=== PATIENT | female | born 1995 | race Caucasian/White ===

== ENCOUNTER 2019-09-07 08:52 | Outpatient (CLI) | payer OTHER ==
[~2019-09-07] VITALS: Ht 167.7 cm; Wt 98.0 kg
--- NOTE | 2019-09-07 08:15 | NUR ---
DEEPTI [place] presented to unit via WHEELCHAIR, accompanied by DIDIER, RN FROM [facility], with c/o BLURRY VISION, PERIOD OFF SLURRED SPEECH, DIFFICULTY READING, THIHNKING CLEARLY, AND/OR COMPREHENDING, FINGERS TINGLING, MIGRAINE. DEEPTI NY to bed immediately, EFHM and TOCO applied, VS taken. DEEPTI NY oriented to bed controls, call light. call light at bedside. this rn remains at bedside for evaluation. Dr Umana appears to bedside for evaluation ( was on unit when pt presented) at 0821.
[2019-09-07 08:20] VITALS: BP 131/93
--- NOTE | 2019-09-07 08:21 | NUR ---
DR KENDALL AT BEDSIDE FOR EVALUATION. PUPILS RESPONSE +, TRACKING FINGER, EQUAL SMILE/FACIAL EXPRESSIONS. PT STATES SHE USUALLY EATS BREAKFAST BEFORE GOING TO WORK, SHE DID NOT EAT THIS AM. STARTED FEELING ODD ON THE DRIVE TO WORK THIS AM, STATES SHE COULD ONLY READ HALF A WORD. CO BLURRY VISION, DIFFICULTY READING, UNABLE TO UNDERSTAND/COMPREHEND WHAT SHE WAS ABLE TO READ. NOT THINKING CLEARLY. PT STATES SHE JUST FEELS WEIRD LIKE SOMETHING IS OFF. DIDIER RN FROM [facility] BROUGHT THE PT UP BY WHEELCHAIR AND STATES THAT THE PT HAD SLURRED SPEECH WELL. PT CO MIGRAINE AND SORE THROAT. DR KENDALL BELIEVES THIS MAY BE THE RESULT OF LOW BLOOD SUGAR. LABS ORDERED, BREAKFAST ORDERED FOR PT WELL. FHT REACTIVE.
[2019-09-07 09:00] VITALS: BP 111/77
[2019-09-07 09:18] LABS: BILIRUBIN,URINE NEGATIVE (NEGATIVE); CLARITY,URINE CLEAR; COLOR,URINE YELLOW; GLUCOSE, URINE (UA) NEGATIVE (NEGATIVE); KETONES,URINE NEGATIVE (NEGATIVE); LEUKOCYTE ESTERASE ,URINE NEGATIVE (NEGATIVE); NITRITE,URINE NEGATIVE (NEGATIVE); PROTEIN,URINE NEGATIVE (NEGATIVE)
[2019-09-07 09:24] LABS: BASOPHILS % (AUTO) 0 % (0-10); EOSINOPHILS % (AUTO) 0 % (0-10); HEMATOCRIT 33 % (35-52); HEMOGLOBIN 10.9 G/DL (11.5-16.0); LYMPHOCYTES # (AUTO) 1.2 X 10^3 (1.0-4.0); LYMPHOCYTES % (AUTO) 10 % (12-44); MEAN CORPUSCULAR HEMOGLOBIN 28 PG (25-34); MEAN CORPUSCULAR HGB CONC 33 G/DL (32-36); MEAN CORPUSCULAR VOLUME 85 FL (80-99); MEAN PLATELET VOLUME 10.4 FL (7.4-10.4); MONOCYTES # (AUTO) 0.9 X 10^3 (0.0-1.0); MONOCYTES % (AUTO) 8 % (0-12); NEUTROPHILS # (AUTO) 9.7 X 10^3 (1.8-7.8); NEUTROPHILS % (AUTO) 82 % (42-75); PLATELET COUNT 177 10^3/uL (130-400); RED CELL DISTRIBUTION WIDTH 13.1 % (10.0-14.5); WHITE BLOOD COUNT 11.9 10^3/uL (4.3-11.0)
[2019-09-07 09:25] VITALS: BP 125/82
[2019-09-07 09:25] LABS: SMEAR SCAN COMMENT NO
[2019-09-07 09:35] VITALS: BP 125/82
[2019-09-07 09:35] LABS: BACTERIA,URINE FEW /HPF
[2019-09-07 09:40] LABS: ALANINE AMINOTRANSFERASE 19 U/L (0-55); ALBUMIN 3.4 GM/DL (3.2-4.5); ALKALINE PHOSPHATASE 112 U/L (40-136); BILIRUBIN,TOTAL 0.6 MG/DL (0.1-1.0); BUN/CREATININE RATIO 10; CALCIUM 8.5 MG/DL (8.5-10.1); CARBON DIOXIDE 21 MMOL/L (21-32); CHLORIDE 105 MMOL/L (98-107); CREATININE SERUM 0.67 MG/DL (0.60-1.30); GFR ESTIMATED > 60; GLUCOSE 77 MG/DL (70-105); POTASSIUM 3.8 MMOL/L (3.6-5.0); SODIUM 137 MMOL/L (135-145); TOTAL PROTEIN 6.5 GM/DL (6.4-8.2)
[2019-09-07 09:52] LABS: BAND NEUTROPHILS 6 %; LYMPHOCYTES % (MANUAL) 7 %; MONOCYTES % (MANUAL) 8 %; NEUTROPHILS % (MANUAL) 79 %; RBC MORPH NORMAL; TOXIC GRANULATION/VACUOLAZATIO 1+
--- NOTE | 2019-09-07 10:00 | NUR ---
DR KENDALL CALLED WITH UPDATED PT REPORT AT THIS TIME. TOCO SHOWS IRREGULAR UC FROM 2-10+ MIN APART. PT STATES SHE FEELS OCCASIONAL LIGHT CRAMPING. FHT REACTIVE WITH ACCELS PRESENT, NO DECELS. PT STATES SHE FEELS BETTER. STILL HAS HEADACHE PRESENT BUT IS GETTING BETTER SINCE SHE HAS EATEN. RIGHT EYE STILL SLIGHTLY BLURRY BUT A LOT BETTER AND ABLE TO READ, UNDERSTAND, SPEAK CLEARLY, PUPILS REACTIVE AND EQUAL, ABLE TO TRACK WELL. SLIGHT SWELLLING IN ANKLES, RIGHT DTR NORMAL, LEFT DTR SLIGHTLY DIMINISHED. SVE BY THIS RN SINCE IRREGULAR UC, DIMPLE/0.5 CM, 0% EFFACEMENT. LAB RESULTS READ TO DR KENDALL. DR KENDALL STATES PT MAY HAVE TYLENOL IF SHE WANTS FOR HEADACHE AND MY BE DC. PT UPDATED ON PLAN, INSTRUCTED TO GET DRESSED AND RN WILL COME BACK WITH DC INSTRUCTIONS. PT OFFERED TYLENOL AND DENIED TYLENOL.
--- NOTE | 2019-09-08 08:00 | Physician Query-Final Dx ---
MIS BURNHAM 09/08/19 0800: Clinic Account Progress/Dx Physician Query: Please give diagnosis Please include # weeks gestation Date of Service Sep 07, 2019 at 08:52 LOUISE KENDALL DO 09/08/191: Clinic Account Progress/Dx DIAGNOSIS: Diagnosis 38 week IUP Confusion, and transient weakness MIS BURNHAM Sep 08, 2019 08:00 LOUISE ZARCO DO Sep 08, 2019 20:51 POS
[2019-09-22] MEDS ORDERED: ACHD5005 PO (10:16)
[2019-09-22] MEDS ORDERED: IBUP-844 PO (10:16)
[2019-09-22] MEDS ORDERED: DOCU100C37 PO (10:16)
[2019-09-22] MEDS ORDERED: Benzocaine/Menthol TP (10:16)
[2019-09-22] MEDS ORDERED: OSLT75C PO (16:16)
== END 2019-09-07 10:10 | disposition home or self-care (01) ==
LOC: LDRP 08:52 → WSo 08:52
PROVIDERS: ATTEND Obstetrics & Gynecology
DX: O99.343 Other mental disorders complicating pregnancy, third trimester (principal); O26.893 Other specified pregnancy related conditions, third trimester; R41.0 Disorientation, unspecified; R53.1 Weakness; Z3A.38 38 weeks gestation of pregnancy
CPT/HCPCS: 36415; 80053; 81000; 82570; 84156; 85007; 85027; 99213

== ENCOUNTER 2019-09-18 08:50 | Outpatient (CLI) | payer OTHER ==
[~2019-09-18] VITALS: Ht 167.7 cm; Wt 97.9 kg
--- NOTE | 2019-09-18 08:50 | NUR ---
DEEPTI NY presented to unit via ambulatory from ED, accompanied by self, with c/o LEAKING FLUID. DEEPTI NY weighed, gowned, voided, and to bed. EFHM and TOCO applied, VS taken. DEEPTI [place] oriented to bed controls, call light, TV, heat, and A/C controls.
[2019-09-18 09:27] VITALS: BP 116/81
--- NOTE | 2019-09-18 10:36 | History & Physical-OB ---
OB - Chief Complaint & HPI Date/Time Date of Admission: Date of Admission: Date seen by a Provider: Sep 18, 2019 Time Seen by a Provider: 10:25 Chief Complaint/History Hx : 1 Hx Para: 0 Expected Date of Delivery: Sep 22, 2019 Gestational Age in Weeks: 39 Gestational Age in Days: 3 Other reason for admission: Patient presents with contractions and concerns of SROM. Reports no further leaking since this morning. Amnioswab per RN was negative. Admission Nurse Assessment Rev: Yes Allergies and Home Medications Allergies Coded Allergies: No Known Drug Allergies (Unverified , 09/07/19) Home Medications No Active Prescriptions or Reported Meds Patient Home Medication List Home Medication List Reviewed: Yes OB - History Hx of Present Care: Yes Ultrasounds: Normal mid trimester US Obstetrical Complications: None Medical Complications: None Obstetrical History Hx : 1 Hx Para: 0 Hx Total # of Abortions (Spona: 0 Patient Past Medical History n/a Social History/Family History Recent Infectious Disease Expo: No Alcohol Use: Denies Use Recreational Drug Use: No 2nd Hand Smoke Exposure: No Immunizations Date of Influenza Vaccine: Jul 18, 2019 OB - Admission Exam Physical Exam Vitals: Vital Signs 09/18/19 09:27 Temp 36.3 Pulse 89 Resp 16 O2 Delivery Room Air HEENT: NCAT Heart: Rhythm Normal Lungs: Clear Abdomen: Gravid Extremities: Normal Reflexes: Normal Cervical Dilatation: 1cm Effacement: 50% Station: -2 Membranes: Intact Heart Rate: 130's Accelerations: Accelerations Present Decelerations: No Decelerations Contractions on Admission: 6-10 Minutes Apart Intensity: Mild OB - Assessment/Plan/Diagnosis Assessment Admission Dx 23 yo @ 39 weeks Irregular contractions Leakage of fluid (likely BLU of ) Admission Status: Observation Plan Other Plan Patient given labor precautions and discharge order was given. LOUISE KENDALL DO Sep 18, 2019 10:36 POS
[2019-09-18] MEDS ORDERED: PREN1TAB19 PO (10:40)
== END 2019-09-18 10:45 | disposition home or self-care (01) ==
LOC: LDRP 08:50 → WSo 08:50
PROVIDERS: ATTEND Obstetrics & Gynecology
DX: O62.0 Primary inadequate contractions (principal); O42.913 Preterm premature rupture of membranes, unspecified as to length of time between rupture and onset of labor, third trimester; Z3A.39 39 weeks gestation of pregnancy
CPT/HCPCS: 99214

== ENCOUNTER → 2021-04-16 | Outpatient (CLI) | payer OTHER ==
[~2021-04-16] MED LIST: ACHD5005 PO; Benzocaine/Menthol TP; DOCU100C37 PO; IBUP-844 PO; OSLT75C PO; PREN1TAB19 PO
--- NOTE | 2021-04-16 15:16 | Diagnostic Imaging Report ---
INDICATION: survey. TECHNIQUE: Multiple real-time grayscale images were obtained over the gravid uterus. COMPARISON: None FINDINGS: There is a single live fetus in a breech presentation. heart rate was recorded at 152 bpm. Placenta is posterior. No previa is identified. Amniotic fluid volume appears normal. Cervical length is 5.6 cm. survey demonstrates kidneys, bladder and stomach to be unremarkable. brain is unremarkable. There is a four-chamber heart. There is a three-vessel cord with normal insertion. spine is unremarkable. Biometrical measurements are as follows: Biparietal 4.45 cm, age 19 weeks 4 days. Head circumference 16.47 cm, age 19 weeks 2 days. Abdominal circumference 15.32 cm, age 20 weeks 4 days. Femur length 3.03 cm, age 19 weeks 3 days. Sonographic estimate age: 19 weeks 5 days. Sonographic estimated date of delivery: 09/05/2021. Estimated Weight: 319 gm (+/- 47 gm). LMP percentile: 73%. heart rate: 152 beats per minute. number: 1 of 1. IMPRESSION: Single live IUP of 19 weeks 5 days gestational age. Estimated date of confinement sonographically is 09/05/2021. Dictated by: Dictated on workstation # [id number]
== END ==
LOC: RAD 10:00
PROVIDERS: ATTEND Nurse Practitioner Women's Health
DX: Z34.02 Encounter for supervision of normal first pregnancy, second trimester (principal); Z3A.19 19 weeks gestation of pregnancy
CPT/HCPCS: 76805

== ENCOUNTER 2021-09-04 06:30 | Inpatient (IN) | payer OTHER ==
[2021-09-04] VITALS (52 sets, daily range): BP systolic 74–128; BP diastolic 37–80
[~2021-09-04] VITALS: Ht 167.7 cm; Wt 94.9 kg
--- OUTSIDE RECORDS SUMMARY | 2021-09-04 06:48 | XMS REPORT | Clinical Summary ---
Author Author [facility] Address Unknown Phone Unavailable Care Team Providers Care Ship Design Teacher Name Role Phone PCP Unavailable Allergies No known active allergies Medications Not on file Active Problems Not on file Immunizations Name Administration Dates Next Due DTaP 04/12/2000, 03/06/1996, , 03/22/1995 HPV, quadrivalent 04/16/2011, 03/13/2010, 06/2009 (Gardasil) Hepatitis A, Ped/adol, 2 03/17/2012, 04/16/2011 dose Hepatitis B, NOS 05/17/1995, 01/18/1995, HiB (PRP-T) 03/06/1996, 05/17/1995, , 01/18/1995 IPV 04/12/2000 MMR 04/12/2000, 03/06/1996 Meningococcal 04/16/2011 Polysaccharide valent-4 Diphtheria Toxoid Conjucate (Menactra) Polio,NOS ([employer] 05/17/1995, 03/22/1995, registry) Tdap 04/11/2009 Varicella (Varivax) 05/06/2007, 02/03/1999 Social History Date Tobacco Use Types Packs/Day Years Used Never Smoker Sex Assigned at Date Recorded Not on file Last Filed Vital Signs Reading Time Taken Comments Vital Sign 100/62 03/17/2012 9:17 AM CDT Blood Pressure - - Pulse - - Temperature - - Respiratory Rate - - Oxygen Saturation - - Inhaled Oxygen Concentration 75.8 kg (167 lb) 03/17/2012 9:17 AM CDT Weight 167.6 cm (5' 6") 03/17/2012 9:17 AM CDT Height 26.95 03/17/2012 9:17 AM CDT Body Mass Index Plan of Treatment Health Maintenance Due Date Last Done Comments COVID-19 Vaccine (1) 1999 Hepatitis C Screening 2012 Cervical Cancer Screening 2015 DTaP,Tdap,and Td Vaccines 04/11/2019 04/11/2009, (6 - Td or Tdap) 04/12/2000, 03/06/1996, Additional history exists Influenza Vaccine (#1) 2021 Pneumo-Vaccine: 65+Yrs (1 2059 of 1 - PPSV23) HIB Vaccines Completed 03/06/1996, 05/17/1995, 03/22/1995, Additional history exists IPV Vaccines Completed 04/12/2000, 05/17/1995, 03/22/1995, Additional history exists MMR Vaccines-Adult Completed 04/12/2000, 03/06/1996 Varicella Vaccines Completed 05/06/2007, 02/03/1999 HPV Vaccines Completed 04/16/2011, 03/13/2010, 04/11/2009 Meningococcal Vaccine Completed 04/16/2011 Pneumo-Vaccine: Peds (0-5 Aged Out No longer el igible based on patient's age to Yrs) & At-Risk Patients complete this topic (6-64 Yrs) Rotavirus Vaccines Aged Out No longer eligible based on patient's age to complete this topic Results Not on filefrom Last 3 Months
[2021-09-04] MEDS ORDERED: D5 LR IV SOLUTION 1,000 ML IV ONE (07:49)
[2021-09-04] MEDS ORDERED: MINERAL OIL CONCENTRATE 99.9% 15 ML UDC TOP PRN (08:00)
[2021-09-04 08:07] LABS: BASOPHILS % (AUTO) 0 % (0-10); EOSINOPHILS # (AUTO) 0.2 10^3/uL (0.0-0.3); EOSINOPHILS % (AUTO) 2 % (0-10); HEMATOCRIT 33 % (35-52); HEMOGLOBIN 11.2 g/dL (11.5-16.0); LYMPHOCYTES % (AUTO) 17 % (12-44); MEAN CORPUSCULAR HEMOGLOBIN 29 pg (25-34); MEAN CORPUSCULAR HGB CONC 34 g/dL (32-36); MEAN CORPUSCULAR VOLUME 86 fL (80-99); MEAN PLATELET VOLUME 11.1 fL (9.0-12.2); MONOCYTES # (AUTO) 0.9 10^3/uL (0.0-1.0); MONOCYTES % (AUTO) 8 % (0-12); NEUTROPHILS # (AUTO) 8.6 10^3/uL (1.8-7.8); NEUTROPHILS % (AUTO) 73 % (42-75); PLATELET COUNT 182 10^3/uL (130-400); WHITE BLOOD COUNT 11.8 10^3/uL (4.3-11.0)
[2021-09-04] MEDS ORDERED: fentaNYL 2 mcg/ml BUPIVA 0.125 100 ML ONE (08:44)
[2021-09-04] MEDS ORDERED: fentaNYL INJ 100 MCG/2 ML AMP ONE (09:25)
[2021-09-04] MEDS ORDERED: BUPIVACAINE 0.25% 30 ML (SENSORCAINE) VIAL ONE (09:25)
[2021-09-04] MEDS ORDERED: OXYTOCIN PRE-MIX DRIP 500 ML IV ONE (10:12)
[2021-09-04] MEDS ORDERED: ONDANSETRON 4 MG/2 ML (SDV) Z0FRAN IV PRN (10:15)
[2021-09-04] MEDS ORDERED: EPIDURAL (fentaNYL 2 MCG/ML BUPIVA 0.125%)100 ML BAG EPI PRN (10:15)
[2021-09-04] MEDS ORDERED: diphenhydrAMINE 50 MG/ML INJ (BENADRYL) IV PRN (10:15)
[2021-09-04] MEDS ORDERED: NALOXONE 0.4 MG/ML 1 ML (NARCAN) VIAL IV PRN ×2 (10:15→18:00)
[2021-09-04] MEDS ORDERED: LACTATED RINGERS 1,000 ML IV SCH (10:15)
[2021-09-04] MEDS ORDERED: OXYTOCIN PRE-MIX DRIP 500 ML IV SCH ×2 (10:15→18:00)
[2021-09-04] MEDS: D5 LR IV SOLUTION 1,000 ML IV SCH ×2 (10:18→14:33)
--- NOTE | 2021-09-04 12:36 | History & Physical-OB ---
OB - Chief Complaint & HPI Date/Time Date of Admission: Date of Admission: Sep 04, 2021 at 6:40 am Date seen by a Provider: Sep 04, 2021 Time Seen by a Provider: 08:10 Chief Complaint/History OB-Reason for Admission/Chief: Induction of Labor Hx : 2 Hx Para: 1 Expected Date of Delivery: Sep 07, 2021 Gestational Age in Weeks: 39 Gestational Age in Days: 4 Admission Nurse Assessment Rev: Yes Allergies and Home Medications Allergies Coded Allergies: No Known Drug Allergies (Unverified , 09/07/19) Patient Home Medication List Home Medication List Reviewed: Yes Docusate Sodium (Docusate Sodium) 100 Mg Capsule, 100 MG PO BID Prescribed by: LOUISE KENDALL on 09/22/19 1016 Hydrocodone Bit/Acetaminophen (Lortab 5 Mg Tablet) 1 Tab Tab, 1 TAB PO Q4H PRN for PAIN-MODERATE (5-7) Prescribed by: LOUISE KENDALL on 09/22/19 1016 Ibuprofen (Ibu) 600 Mg Tablet, 600 MG PO Q6H Prescribed by: LOUISE KENDALL on 09/22/19 1016 Oseltamivir Phosphate (Tamiflu) 75 Mg Cap, 75 MG PO BID Prescribed by: SONAL FLORENTINO on 09/22/19 1616 Vit/Iron Fumarate/FA ( Vitamins Tablet) 1 Each Tablet, 1 EACH PO DAILY, (Reported) Entered as Reported by: INES LI on 09/18/19 1040 [Benzocaine/Menthol] 1 AEROSOL, 0 ML TP UD PRN for PAIN- SEE INSTRUCTIONS Prescribed by: LOUISE KENDALL on 09/22/19 1016 OB - History Hx of Present Care: Yes Ultrasounds: Normal mid trimester US Obstetrical Complications: None Medical Complications: None Delivery History Adverse Rxn to Tranfusion: No Patient Past Medical History n/a Social History/Family History 2nd Hand Smoke Exposure: No Immunizations Hepatitis A: Yes Hepatitis B: Yes Date of Influenza Vaccine: Jul 18, 2019 OB - Admission Exam Physical Exam Vitals: Vital Signs 09/04/21 11:49 Temp 36.0 Pulse 78 Resp 20 B/P (MAP) 105/62 (76) Pulse Ox 100 O2 Delivery Room Air HEENT: NCAT Heart: Rhythm Normal Lungs: Clear Abdomen: Gravid Extremities: Normal Reflexes: Normal Cervical Dilatation: 3cm Effacement: 75% Station: -1 Membranes: Intact Heart Rate: 130's Accelerations: Accelerations Present Decelerations: No Decelerations Short Term Variability: Present Telescope Operator Variability: Average (6-25) Contractions on Admission: 6-10 Minutes Apart Intensity: Mild Horner Scoring Tool (Modified) Dilation (cm): 3-4cm (2) Effacement (%): 51-79% (2) Descent/Station: -1,0 (2) Cervix Consistency: Soft (2) Cervix Position: Anterior (2) Add 1 point for: Each previous vaginal delivery (1) Horner Score: 11 Labs Laboratory Tests Test 09/04/21 07:40 Range/Units White Blood Count 11.8 H 4.3-11.0 10^3/uL Red Blood Count 3.89 3.80-5.11 10^6/uL Hemoglobin 11.2 L 11.5-16.0 g/dL Hematocrit 33 L 35-52 % Mean Corpuscular Volume 86 80-99 fL Mean Corpuscular Hemoglobin 29 25-34 pg Mean Corpuscular Hemoglobin Concent 34 32-36 g/dL Red Cell Distribution Width 13.7 10.0-14.5 % Platelet Count 182 130-400 10^3/uL Mean Platelet Volume 11.1 9.0-12.2 fL Immature Granulocyte % (Auto) 1 % Neutrophils (%) (Auto) 73 42-75 % Lymphocytes (%) (Auto) 17 12-44 % Monocytes (%) (Auto) 8 0-12 % Eosinophils (%) (Auto) 2 0-10 % Basophils (%) (Auto) 0 0-10 % Neutrophils # (Auto) 8.6 H 1.8-7.8 10^3/uL Lymphocytes # (Auto) 2.0 1.0-4.0 10^3/uL Monocytes # (Auto) 0.9 0.0-1.0 10^3/uL Eosinophils # (Auto) 0.2 0.0-0.3 10^3/uL Basophils # (Auto) 0.0 0.0-0.1 10^3/uL Immature Granulocyte # (Auto) 0.1 0.0-0.1 10^3/uL OB - Assessment/Plan/Diagnosis Assessment Assessment: induction of labor Admission Dx 25 yo @ 39 weeks Elective IOL GBS neg Admission Status: Inpatient Order (span 2 midnights) Reason for Inpatient Admission: IOL at 39 weeks Plan Plan: Induction Induction Method: LOUISE WOOD DO Sep 04, 2021 12:36 pm
[2021-09-04] MEDS ORDERED: CATHETER FLUSH 10 ML SYR IV SCH ×2 (14:00→22:00)
--- NOTE | 2021-09-04 17:55 | Discharge Inst-Women's Service ---
Discharge Inst-Women's Serv Depart Medication/Instructions New, Converted or Re-Newed RX: Transmitted to Pharmacy Final Diagnosis PPD 2 NVD Problems Reviewed?: Yes Consults/Follow Up Additional Follow Up: Yes Orders/Referrals Dr. Kendall in 6 weeks Activity Activity: Activity as Tolerated Driving Instructions: No Driving for 1 Week NO SMOKING: NO SMOKING Nothing Inside Vagina: No Douching, No [place], No Tampons Diet Discharge Diet: No Restrictions Symptoms to Report to : Bleeding Excessive, Pain Increased, Fever Over 101 Degrees F, Vaginal Bleeding Increase, Questions/Concerns For Any Problems or Questions: Contact Your Physician LOUISE KENDALL DO Sep 04, 2021 17:55
--- NOTE | 2021-09-04 17:55 | OB Labor & Delivery Record ---
L&D History Date of Service Date of Service: Sep 04, 2021 History Expected Date of Delivery: Sep 07, 2021 Gestational Age in Weeks: 39 Hx : 2 Hx Para: 1 Complications Events: Routine care Operative Indications (Cesarea: N/A-Vaginal Delivery Intrapartal Events: None L&D Stage1 Stage One Onset of Labor - Date: Sep 04, 2021 Monitors and Tracing Monitor Mode: External Heart Rate: 135 Station: 0 Vital Signs VS - Last 72 Hours, by Label 09/04/21 09/04/21 09/04/21 09/04/21 07:25 07:55 08:25 08:55 Temp 36.6 Pulse 87 90 83 75 Resp 20 20 20 20 B/P (MAP) 118/70 (86) 114/80 (91) 105/57 (73) 108/62 (77) O2 Delivery Room Air Room Air Room Air Room Air 09/04/21 09/04/21 09/04/21 09/04/21 09:40 09:43 09:47 09:50 Pulse 93 76 101 101 Resp 20 20 20 20 B/P (MAP) 128/74 (92) 120/68 (85) 122/70 (87) 117/70 (86) Pulse Ox 100 100 99 99 O2 Delivery Room Air Room Air Room Air Room Air 09/04/21 09/04/21 09/04/21 09/04/21 09:54 09:56 09:58 10:02 Temp 36.0 Pulse 90 56 60 74 Resp 20 20 20 20 B/P (MAP) 90/45 (60) 74/37 (49) 106/58 (74) 113/66 (82) Pulse Ox 99 99 97 98 O2 Delivery Room Air Room Air Room Air Room Air 09/04/21 09/04/21 09/04/21 09/04/21 10:04 10:08 10:10 10:14 Pulse 74 87 84 84 Resp 20 20 20 20 B/P (MAP) 113/63 (80) 112/65 (81) 101/65 (77) 108/63 (78) Pulse Ox 98 99 99 99 O2 Delivery Room Air Room Air Room Air Room Air 09/04/21 09/04/21 09/04/21 09/04/21 10:17 10:32 10:48 11:03 Pulse 83 77 83 85 Resp 20 20 20 20 B/P (MAP) 106/61 (76) 108/63 (78) 105/61 (76) 93/58 (70) Pulse Ox 99 100 100 100 O2 Delivery Room Air Room Air Room Air Room Air 09/04/21 09/04/21 09/04/21 09/04/21 11:18 11:33 11:49 12:04 Temp 36.0 Pulse 88 86 78 80 Resp 20 20 20 20 B/P (MAP) 95/61 (72) 100/64 (76) 105/62 (76) 113/71 (85) Pulse Ox 100 100 100 100 O2 Delivery Room Air Room Air Room Air Room Air 09/04/21 09/04/21 09/04/21 09/04/21 12:18 12:33 12:50 13:05 Pulse 79 81 82 85 Resp 20 20 20 20 B/P (MAP) 112/69 (83) 110/59 (76) 106/68 (81) 96/51 (66) Pulse Ox 100 100 100 100 O2 Delivery Room Air Room Air Room Air Room Air 09/04/21 09/04/21 09/04/21 09/04/21 13:18 13:33 13:50 14:04 Pulse 81 90 82 79 Resp 20 20 20 20 B/P (MAP) 100/55 (70) 97/55 (69) 100/59 (73) 108/63 (78) Pulse Ox 100 100 100 100 O2 Delivery Room Air Room Air Room Air Room Air 09/04/21 09/04/21 09/04/21 09/04/21 14:18 14:33 14:49 15:03 Temp 36.6 Pulse 82 99 76 85 Resp 20 20 20 20 B/P (MAP) 96/53 (67) 118/79 (92) 108/67 (81) 112/69 (83) Pulse Ox 99 99 100 100 O2 Delivery Room Air Room Air Room Air Room Air 09/04/21 09/04/21 09/04/21 09/04/21 15:18 15:33 15:48 16:03 Temp 36.9 Pulse 84 91 96 99 Resp 20 20 20 20 B/P (MAP) 111/72 (85) 115/73 (87) 110/67 (81) 104/63 (77) Pulse Ox 100 100 100 100 O2 Delivery Room Air Room Air Room Air Room Air 09/04/21 09/04/21 09/04/21 16:18 16:33 16:48 Pulse 91 79 87 Resp 20 20 20 B/P (MAP) 111/67 (82) 96/70 (79) 103/67 (79) Pulse Ox 100 100 100 O2 Delivery Room Air Room Air Room Air Rupture of Membranes Spontaneous Ruture of Membrane: No Amniotic Membrane Rupture Time: 0804 Amniotic Membrane Fluid Desc.: Clear Vaginal Bleeding Description: Normal Show Induction/Anesthesia Epidural Cath Placement - Time: 939 Progress/Notes Patient had AROM performed, followed by pitocin augmentation. She progressed with epidural to complete and +2 station. L&D Stage2 Stage Two Stage II Date: Sep 04, 2021 Monitors and Tracing Monitor Mode: External Heart Rate: 135 Position: Right Occiput Anterior Presentation: Vertex Cord Descript/Complications Cord Vessel Description: 3 Vessels Complications nuchal cord reduced x 1 Delivery Type Delivery Method: Spontaneous Vaginal Anterior Shoulder: Right Episiotomy/Perineal Laceration Laceraction(s)/Extensions: Yes Episiotomy Description: Perineal Extension/lac, 1st degree Degree (describe repair) 1st degree perineal laceration repaired using 3-0 rapide vicryl in usual fashion. Condition of Infant Delivery 1 minute Comment: 9 5 minute Comment: 9 Notes Live female infant weight 8lbs 10 oz Condition of Condition of Infant: Living Exam: No Observed Abnormalities Resuscitation Resuscitation: N/A - Spontaneous Resp L&D Stage3 Stage Three Stage III Date: Sep 04, 2021 Pictocin Pitocin Administration mu/min: 8 Pitocin ml/hr: 8 Pitocin Administration Comment: 30 mu wide open after delivery of placetna Placenta Delivery Placenta Delivery: Spontaneous Delivery Summary Summary Estimated blood loss (mL): 400 Attending at delivery: Louise Kendall DO Condition of Delivery Examined: Cervix Examined, Uterus Explored Post Hemorrhage: No Condition of Mother stable Condition of Infant (s) stable LOUISE KENDALL DO Sep 04, 2021 17:55
[2021-09-04] MEDS ORDERED: BENZ78AE5 TP (17:58)
[2021-09-04] MEDS ORDERED: ACET-93 PO (17:58)
[2021-09-04] MEDS ORDERED: IBUP-844 PO (17:58)
[2021-09-04] MEDS ORDERED: DIBU30OI TOP (17:58)
[2021-09-04] MEDS ORDERED: DOCU100C37 PO (17:58)
[2021-09-04] MEDS ORDERED: DIBUCAINE 1% OINTMENT 30 GM TUBE TOP PRN (18:00)
[2021-09-04] MEDS ORDERED: BENZOCAINE/MENTHOL (DERMOPLAST) 56 ML CAN TP PRN (18:00)
[2021-09-04] MEDS ORDERED: TETANUS,DIPTH,PERTUSS P/F (BOOSTRIX) 0.5 ML VIAL IM ONE (18:00)
[2021-09-04] MEDS ORDERED: MEASLES,MUMPS,RUBELLA 1 EA INJ SQ ONE (18:00)
[2021-09-04] MEDS ORDERED: WITCH HAZEL(TUCKS) 40 EA JAR TOP PRN (18:00)
[2021-09-04] MEDS: IBUPROFEN 600 MG (MOTRIN) TAB PO SCH (20:39)
[2021-09-04] MEDS: DOCUSATE SODIUM 100 MG (COLACE) CAP PO SCH (20:39)
[2021-09-05 02:19] VITALS: BP 100/55
[2021-09-05] MEDS: IBUPROFEN 600 MG (MOTRIN) TAB PO SCH ×3 (02:20→14:33)
[2021-09-05 04:54] VITALS: BP 112/73
[2021-09-05] MEDS: ACETAMINOPHEN 500 MG TAB (TYLENOL) PO SCH ×2 (04:54→18:36)
[2021-09-05 06:16] LABS: BASOPHILS % (AUTO) 0 % (0-10); EOSINOPHILS # (AUTO) 0.3 10^3/uL (0.0-0.3); EOSINOPHILS % (AUTO) 2 % (0-10); HEMATOCRIT 28 % (35-52); HEMOGLOBIN 9.2 g/dL (11.5-16.0); LYMPHOCYTES # (AUTO) 2.8 10^3/uL (1.0-4.0); LYMPHOCYTES % (AUTO) 23 % (12-44); MEAN CORPUSCULAR HEMOGLOBIN 28 pg (25-34); MEAN CORPUSCULAR HGB CONC 33 g/dL (32-36); MEAN CORPUSCULAR VOLUME 86 fL (80-99); MEAN PLATELET VOLUME 10.3 fL (9.0-12.2); MONOCYTES % (AUTO) 8 % (0-12); NEUTROPHILS % (AUTO) 66 % (42-75); PLATELET COUNT 148 10^3/uL (130-400); WHITE BLOOD COUNT 12.2 10^3/uL (4.3-11.0)
[2021-09-05] MEDS ORDERED: PRENATAL VITAMIN 1 EA TAB PO SCH (07:00)
[2021-09-05] MEDS ORDERED: FERROUS SULF 325 MG (IRON) TAB PO SCH (07:00)
--- NOTE | 2021-09-05 07:29 | Postpartum Progress Note ---
Note Note Day # 1 Subjective: Patient is without complaints. Ambulating, voiding. Tolerating a regular diet without nausea or vomiting. Normal lochia. Pain is well controlled with oral pain medications. Objective: Physical Exam: General - Alert and oriented, no apparent distress Abdomen - Soft, appropriately tender to palpation, non-distended, fundus firm at umbilicus Extremities - no edema, negative Sanya's bilaterally Assessment: PPD 2 NVD Acute blood loss anemia Plan: Routine care. Encourage breast feeding. Encourage ambulation. Ferrous sulfate supplementation. Plan for discharge tomorrow Vitals - Labs Vital Signs - I&O Vital Signs Date Time Temp Pulse Resp B/P (MAP) Pulse Ox O2 Delivery O2 Flow Rate FiO2 09/05/21 04:54 36.6 76 20 112/73 (86) 100 Room Air 09/05/21 02:19 36.8 84 20 100/55 (70) 98 Room Air 09/04/21 20:15 110 20 109/62 (78) Room Air 09/04/21 19:00 103 20 104/66 (79) Room Air 09/04/21 18:47 36.8 96 20 111/65 (80) Room Air 09/04/21 18:32 37.0 102 20 123/68 (86) Room Air 09/04/21 18:22 36.9 97 20 124/69 (87) Room Air 09/04/21 18:03 37.0 107 20 126/62 (83) Room Air 09/04/21 17:47 37.2 107 20 112/56 (74) Room Air 09/04/21 17:18 37.2 111 20 113/56 (75) Room Air 09/04/21 17:03 97 20 110/53 (72) Room Air 09/04/21 16:48 87 20 103/67 (79) 100 Room Air 09/04/21 16:33 79 20 96/70 (79) 100 Room Air 09/04/21 16:18 91 20 111/67 (82) 100 Room Air 09/04/21 16:03 99 20 104/63 (77) 100 Room Air 09/04/21 15:48 96 20 110/67 (81) 100 Room Air 09/04/21 15:33 36.9 91 20 115/73 (87) 100 Room Air 12/2/21 15:18 84 20 111/72 (85) 100 Room Air 09/04/21 15:03 85 20 112/69 (83) 100 Room Air 09/04/21 14:49 76 20 108/67 (81) 100 Room Air 09/04/21 14:33 36.6 99 20 118/79 (92) 99 Room Air 09/04/21 14:18 82 20 96/53 (67) 99 Room Air 09/04/21 14:04 79 20 108/63 (78) 100 Room Air 09/04/21 13:50 82 20 100/59 (73) 100 Room Air 09/04/21 13:33 90 20 97/55 (69) 100 Room Air 09/04/21 13:18 81 20 100/55 (70) 100 Room Air 09/04/21 13:05 85 20 96/51 (66) 100 Room Air 09/04/21 12:50 82 20 106/68 (81) 100 Room Air 09/04/21 12:33 81 20 110/59 (76) 100 Room Air 09/04/21 12:18 79 20 112/69 (83) 100 Room Air 09/04/21 12:04 80 20 113/71 (85) 100 Room Air 09/04/21 11:49 36.0 78 20 105/62 (76) 100 Room Air 09/04/21 11:33 86 20 100/64 (76) 100 Room Air 09/04/21 11:18 88 20 95/61 (72) 100 Room Air 09/04/21 11:03 85 20 93/58 (70) 100 Room Air 09/04/21 10:48 83 20 105/61 (76) 100 Room Air 09/04/21 10:32 77 20 108/63 (78) 100 Room Air 09/04/21 10:17 83 20 106/61 (76) 99 Room Air 09/04/21 10:14 84 20 108/63 (78) 99 Room Air 09/04/21 10:10 84 20 101/65 (77) 99 Room Air 09/04/21 10:08 87 20 112/65 (81) 99 Room Air 09/04/21 10:04 74 20 113/63 (80) 98 Room Air 09/04/21 10:02 74 20 113/66 (82) 98 Room Air 09/04/21 09:58 36.0 60 20 106/58 (74) 97 Room Air 09/04/21 09:56 56 20 74/37 (49) 99 Room Air 09/04/21 09:54 90 20 90/45 (60) 99 Room Air 09/04/21 09:50 101 20 117/70 (86) 99 Room Air 09/04/21 09:47 101 20 122/70 (87) 99 Room Air 09/04/21 09:43 76 20 120/68 (85) 100 Room Air 09/04/21 09:40 93 20 128/74 (92) 100 Room Air 09/04/21 08:55 75 20 108/62 (77) Room Air 09/04/21 08:25 83 20 105/57 (73) Room Air 09/04/21 07:55 90 20 114/80 (91) Room Air Labs Laboratory Tests 09/04/21 07:40: White Blood Count 11.8H, Red Blood Count 3.89, Hemoglobin 11.2L, Hematocrit 33L, Mean Corpuscular Volume 86, Mean Corpuscular Hemoglobin 29, Mean Corpuscular Hemoglobin Concent 34, Red Cell Distribution Width 13.7, Platelet Count 182, Mean Platelet Volume 11.1, Immature Granulocyte % (Auto) 1, Neutrophils (%) (Auto) 73, Lymphocytes (%) (Auto) 17, Monocytes (%) (Auto) 8, Eosinophils (%) (Auto) 2, Basophils (%) (Auto) 0, Neutrophils # (Auto) 8.6H, Lymphocytes # (Aut o) 2.0, Monocytes # (Auto) 0.9, Eosinophils # (Auto) 0.2, Basophils # (Auto) 0.0, Immature Granulocyte # (Auto) 0.1 09/05/21 06:05: White Blood Count 12.2H, Red Blood Count 3.24L, Hemoglobin 9.2L, Hematocrit 28L, Mean Corpuscular Volume 86, Mean Corpuscular Hemoglobin 28, Mean Corpuscular Hemoglobin Concent 33, Red Cell Distribution Width 13.7, Platelet Count 148, Mean Platelet Volume 10.3, Immature Granulocyte % (Auto) 1, Neutrophils (%) (Auto) 66, Lymphocytes (%) (Auto) 23, Monocytes (%) (Auto) 8, Eosinophils (%) (Auto) 2, Basophils (%) (Auto) 0, Neutrophils # (Auto) 8.0H, Lymphocytes # (Auto) 2.8, Monocytes # (Auto) 1.0, Eosinophils # (Auto) 0.3, Basophils # (Auto) 0.0, Immature Granulocyte # (Auto) 0.1 LOUISE KENDALL DO Sep 05, 2021 07:29
[2021-09-05] MEDS: DOCUSATE SODIUM 100 MG (COLACE) CAP PO SCH (07:36)
[2021-09-05 14:30] VITALS: BP 110/70
--- NOTE | 2021-09-05 16:08 | Anesthesia-Regional Post-Op ---
Regional Patient Condition Mental Status: Alert, Oriented x3 Circulation: Same as Pre-Op Headache: Absent Sensation: Full Recovery Motor Block: Absent Post Op Complications Complications None Follow Up Care/Instructions Patient Instructions None needed. Anesthesia/Patient Condition Patient is doing well, no complaints, stable vital signs, no apparent adverse anesthesia problems. USAMA RANDALL DO Sep 05, 2021 16:08
[2021-09-05 19:30] VITALS: BP 117/83
== END 2021-09-05 20:00 | disposition home or self-care (01) | DRG 806 ==
LOC: LDRP 06:40
PROVIDERS: ADMIT Obstetrics & Gynecology; ATTEND Obstetrics & Gynecology
PROC: 10E0XZZ Delivery of Products of Conception, External Approach (ICD-10-PCS; principal; 2021-09-04)
PROC: 10907ZC Drainage of Amniotic Fluid, Therapeutic from Products of Conception, Via Natural or Artificial Opening (ICD-10-PCS; 2021-09-04)
PROC: 0HQ9XZZ Repair Perineum Skin, External Approach (ICD-10-PCS; 2021-09-04)
DX: O70.0 First degree perineal laceration during delivery (principal); D62 Acute posthemorrhagic anemia; Z37.0 Single live birth; O90.81 Anemia of the puerperium; Z3A.39 39 weeks gestation of pregnancy
CPT/HCPCS: 36415; 85025; 86850; 86900; 86901

== ENCOUNTER → 2023-08-17 | Outpatient (CLI) | payer OTHER ==
[~2023-08-17] MED LIST changes: +ACET-93 PO; +BENZ78AE5 TP; +DIBU30OI TOP
--- NOTE | 2023-08-17 16:37 | Diagnostic Imaging Report ---
INDICATION: Supervision of normal . Anatomy scan. TECHNIQUE: Multiple Real-time grayscale images were obtained over the gravid uterus. COMPARISON: None. FINDINGS: A single live intrauterine gestation is visualized in transverse presentation. heart tones measure 146 BPM. The placenta is anterior and not low-lying. The MARCELA is normal measuring 15.6 cm. The cervix is closed and measures 6.0 cm in length. The urinary bladder, cord insertion, three-vessel cord, stomach, nose and lips, four-chamber heart, profile, and upper and lower extremities are visualized and have a normal appearance. The outflow tracts, intracranial contents, and spine are suboptimally visualized due to position. Views of the adnexa are normal. Biometrical measurements are as follows: Biparietal 4.58 cm, age 19 weeks 6 days. Head circumference 18.03 cm, age 20 weeks 4 days. Abdominal circumference 16.12 cm, age 21 weeks 2 days. Femur length 3.25 cm, age 20 weeks 1 days. Sonographic estimate age: 20 weeks 4 days. Sonographic estimated date of delivery: 12/31/2023. Estimated Weight: 369 gm (+/- 54 gm). LMP percentile: 82%. heart rate: 146 beats per minute. number: 1 of 1. IMPRESSION: 1. Single live intrauterine gestation measuring 20 weeks 4 days with an estimated due date of 12/31/2023. These are within range with the clinical dates. 2. The outflow tracts, intracranial contents, and spine are suboptimally visualized due to position. Otherwise, the anatomy is visualized and has a normal appearance. Recommend continued followup as indicated. Dictated by: Dictated on workstation # [id number]
== END ==
LOC: RAD 12:58
PROVIDERS: ATTEND Nurse Practitioner Women's Health
DX: Z34.02 Encounter for supervision of normal first pregnancy, second trimester (principal); Z3A.20 20 weeks gestation of pregnancy
CPT/HCPCS: 76805